=== PATIENT | female | born 1980 | race Asian ===

== ENCOUNTER 2017-01-06 00:01 | Inpatient (IN) | payer SELFPAY ==
[~2017-01-06] VITALS: Ht 167.6 cm; Wt 66.2 kg
[2017-01-06] MEDS ORDERED: CITRIC ACID/SODIUM CITRATE 30 ML UDC PO ONE (00:25)
[2017-01-06] MEDS ORDERED: LACTATED RINGERS 1,000 ML IV SCH (00:25)
[2017-01-06 00:59] LABS: BASOPHILS # (AUTO) 0.1 K/uL (0.00-0.22); EOSINOPHILS # (AUTO) 0.2 K/uL (0-0.4); EOSINOPHILS % (AUTO) 2.4 % (0.0-4.0); HEMOGLOBIN 10.5 g/dL (12.0-16.0); LYMPHOCYTES # (AUTO) 1.4 K/uL (2.5-16.5); LYMPHOCYTES % (AUTO) 18.3 % (20.5-51.1); MEAN CORPUSCULAR HEMOGLOBIN 27 pg (27-31); MEAN CORPUSCULAR HGB CONC 32 g/dL (33-37); MEAN CORPUSCULAR VOLUME 86 fL (80-94); MONOCYTES # (AUTO) 0.6 K/uL (0.8-1.0); MONOCYTES % (AUTO) 7.9 % (1.7-9.3); NEUTROPHILS # (AUTO) 5.3 K/uL (1.8-7.7); NEUTROPHILS % (AUTO) 70.4 % (42.2-75.2); PLATELET COUNT (AUTO) 235 K/uL (140-450); RED BLOOD CELL COUNT(AUTO) 3.86 MIL/uL (4.20-5.40); RED CELL DISTRIBUTION WIDTH 12.8 % (11.6-13.7); WHITE BLOOD COUNT (AUTO) 7.6 K/uL (4.8-10.8)
[2017-01-06 00:59] LABS: APPEARANCE,URINE CLEAR (CLEAR); BILIRUBIN,URINE NEGATIVE (NEGATIVE); BLOOD, URINE TRACE-I (NEGATIVE); COLOR,URINE YELLOW (YELLOW); LEUKOCYTE ESTERASE ,URINE NEGATIVE (NEGATIVE); NITRITE, URINE NEGATIVE (NEGATIVE); PH,URINE 6.5 (5.0-9.0); PROTEIN,URINE NEGATIVE (NEGATIVE); UGLUCOSE NEGATIVE (NEGATIVE); UROBILINOGEN,URINE 0.2 EU/dL (0.2 - 1)
[2017-01-06 03:18] LABS: BACTERIA,URINE FEW /HPF (None Seen); WBC,URINE 0-5 (RARE) /HPF (0-5)
[2017-01-06 04:45] VITALS: BP 95/54
[2017-01-06] MEDS ORDERED: fentaNYL 0.05 MG/ML VIAL ONE (07:26)
[2017-01-06] MEDS ORDERED: MORPHINE PRES FREE 10 MG/10 ML AMP IV ONE (07:26)
[2017-01-06] MEDS ORDERED: ePHEDrine 50 MG/ML VIAL IV ONE (07:29)
[2017-01-06] MEDS ORDERED: BUPIVACAINE-MPF 0.75% 10 ML VIAL INJ ONE (07:29)
[2017-01-06] MEDS ORDERED: TRIAMCINOLONE 10 MG/ML 5ML VIAL ONE (07:39)
[2017-01-06] MEDS ORDERED: OXYTOCIN 10 UNITS/ML VIAL ONE (07:39)
[2017-01-06] MEDS ORDERED: ceFAZolin 1,000 MG VIAL ONE (08:02)
[2017-01-06] MEDS ORDERED: CARBOPROST 250 MCG/ML AMP IM ONE ×2 (08:13→08:17)
[2017-01-06] MEDS ORDERED: METHYLERGONOVINE 0.2 MG/ML AMP IM ONE (08:15)
[2017-01-06] MEDS ORDERED: KETOROLAC 60 MG/2 ML VIAL IM PRN (08:15)
[2017-01-06] MEDS ORDERED: NALBUPHINE 10 MG/ML AMP IVP PRN (08:15)
[2017-01-06] MEDS ORDERED: diphenhydrAMINE 50 MG/ML VIAL IVP PRN (08:15)
[2017-01-06] MEDS ORDERED: NALOXONE 0.4 MG/ML VIAL IVP PRN ×3 (08:15)
[2017-01-06] MEDS ORDERED: ONDANSETRON 4 MG/2 ML VIAL IVP PRN ×2 (08:15)
--- NOTE | 2017-01-06 08:36 | NUR ---
PATIENT HAS BEEN SCREENED AND CATEGORIZED MODERATE NUTRITION RISK. PATIENT WILL BE SEEN WITHIN 3-5 DAYS OF ADMISSION. 01/08/17-01/10/[address] Addendum: 01/06/17 at [address] *Error PATIENT HAS BEEN SCREENED AND CATEGORIZED LOW NUTRITION RISK. PATIENT WILL BE SEEN WITHIN 7 DAYS OF ADMISSION. 01/12/[address]
[2017-01-06] MEDS ORDERED: OXYTOCIN 20 UNITS/LR PREMIX 1,000 ML IV ONE (08:52)
[2017-01-06] MEDS ORDERED: ONDANSETRON 4 MG/2 ML VIAL ONE (08:52)
[2017-01-06] MEDS ORDERED: OXYTOCIN 20 UNITS/LR PREMIX 1,000 ML IV SCH (12:02)
[2017-01-06] MEDS ORDERED: TEMAZEPAM 15 MG CAP PO PRN ×2 (12:05→12:55)
[2017-01-06] MEDS ORDERED: HYDROcodone/APAP 5/325 MG 1 TAB TAB PO PRN ×2 (12:05→12:55)
[2017-01-06] MEDS ORDERED: METHYLERGONOVINE 0.2 MG/ML AMP IM PRN ×2 (12:05→12:55)
[2017-01-06] MEDS ORDERED: MEASLES, MUMPS, AND RUBELLA 1 VIAL SQVAC PRN ×2 (12:05→12:55)
[2017-01-06] MEDS ORDERED: oxyCODONE/APAP 5/325 MG 1 TAB TAB PO PRN ×2 (12:05→12:55)
[2017-01-06] MEDS ORDERED: SIMETHICONE 80 MG TAB.CHEW PO PRN ×2 (12:05→12:55)
[2017-01-06] MEDS ORDERED: TRIMETHOBENZAMIDE 200 MG/2 ML SYR IM PRN ×2 (12:05→12:55)
[2017-01-06 12:24] LABS: BASOPHILS % (AUTO) 0.3 % (0.0-2.0); EOSINOPHILS # (AUTO) 0.2 K/uL (0-0.4); EOSINOPHILS % (AUTO) 1.3 % (0.0-4.0); HEMATOCRIT 31.1 % (36-48); HEMOGLOBIN 9.9 g/dL (12.0-16.0); LYMPHOCYTES # (AUTO) 0.8 K/uL (2.5-16.5); LYMPHOCYTES % (AUTO) 4.8 % (20.5-51.1); MEAN CORPUSCULAR HEMOGLOBIN 27 pg (27-31); MEAN CORPUSCULAR HGB CONC 32 g/dL (33-37); MEAN CORPUSCULAR VOLUME 85 fL (80-94); MONOCYTES # (AUTO) 0.7 K/uL (0.8-1.0); MONOCYTES % (AUTO) 4.3 % (1.7-9.3); NEUTROPHILS # (AUTO) 14.9 K/uL (1.8-7.7); NEUTROPHILS % (AUTO) 89.3 % (42.2-75.2); PLATELET COUNT (AUTO) 209 K/uL (140-450); RED BLOOD CELL COUNT(AUTO) 3.64 MIL/uL (4.20-5.40); RED CELL DISTRIBUTION WIDTH 12.6 % (11.6-13.7); WHITE BLOOD COUNT (AUTO) 16.6 K/uL (4.8-10.8)
[2017-01-06] MEDS ORDERED: IBUPROFEN 800 MG TAB PO PRN (12:55)
[2017-01-06] MEDS: OXYTOCIN 20 UNITS/LR PREMIX 1,000 ML IV SCH (17:20)
[2017-01-06] MEDS ORDERED: DOCUSATE SOD/SENNA 50/8.6 MG 1 TAB PO SCH ×2 (21:00)
[2017-01-07] MEDS: OXYTOCIN 20 UNITS/LR PREMIX 1,000 ML IV SCH (01:02)
[2017-01-07 08:00] LABS: BASOPHILS % (AUTO) 0.3 % (0.0-2.0); EOSINOPHILS # (AUTO) 0.3 K/uL (0-0.4); EOSINOPHILS % (AUTO) 2.2 % (0.0-4.0); HEMATOCRIT 28.3 % (36-48); HEMOGLOBIN 9.3 g/dL (12.0-16.0); LYMPHOCYTES # (AUTO) 1.3 K/uL (2.5-16.5); LYMPHOCYTES % (AUTO) 10.9 % (20.5-51.1); MEAN CORPUSCULAR HEMOGLOBIN 28 pg (27-31); MEAN CORPUSCULAR HGB CONC 33 g/dL (33-37); MEAN CORPUSCULAR VOLUME 84 fL (80-94); MONOCYTES # (AUTO) 0.7 K/uL (0.8-1.0); MONOCYTES % (AUTO) 5.5 % (1.7-9.3); NEUTROPHILS # (AUTO) 9.7 K/uL (1.8-7.7); NEUTROPHILS % (AUTO) 81.1 % (42.2-75.2); PLATELET COUNT (AUTO) 222 K/uL (140-450); RED BLOOD CELL COUNT(AUTO) 3.35 MIL/uL (4.20-5.40)
[2017-01-07] MEDS ORDERED: SODIUM PHOSPHATE 118 ML ENEM RC SCH (09:00)
[2017-01-08] MEDS ORDERED: IBUP-2213 PO ×2 (09:25→09:29)
== END 2017-01-08 17:15 | disposition home or self-care (01) | DRG 766 ==
LOC: MLD 00:01 → MFCC 09:38
PROVIDERS: ADMIT Obstetrics & Gynecology; ATTEND Obstetrics & Gynecology
PROC: 10D00Z1 Extraction of Products of Conception, Low, Open Approach (ICD-10-PCS; principal; 2017-01-06 07:30)
PROC: 3E0234Z Introduction of Serum, Toxoid and Vaccine into Muscle, Percutaneous Approach (ICD-10-PCS; 2017-01-07)
DX: O34.211 Maternal care for low transverse scar from previous cesarean delivery (principal); O99.02 Anemia complicating childbirth; D64.9 Anemia, unspecified; Z37.0 Single live birth; O09.523 Supervision of elderly multigravida, third trimester; Z23 Encounter for immunization; Z3A.39 39 weeks gestation of pregnancy
CPT/HCPCS: 36415; 51702; 81001; 85025; 86592; 86886; 86900; 86901; 90715; J0690; J1885; J2210; J2270; J2405; J2590; J3010; J3301; J3490; J7060; J7120